=== PATIENT | female | born 1970 | race Caucasian/White ===

== ENCOUNTER 2016-06-05 15:36 | Emergency (ER) | payer MEDICAID ==
[~2016-06-05] VITALS: Ht 160 cm; Wt 93.0 kg
[~2016-06-05 15:36] MED LIST: MOTRIN600 MG PO; PRENATAL VITAMI1 T10 PO; PRENATALS; ROBITUSSIN20 MG/1 ML PO
--- NOTE | 2016-06-05 16:00 | NUR ---
PT TAKEN TO BED 5
--- NOTE | 2016-06-05 16:02 | NUR ---
45 F BIB FAMILY C/O HIGH BP, DIZZY & NAUSEA X TODAY. PATIENT DENIES V/D; SKIN IS PINK/WARM/DRY; AAOX4 WITH EVEN AND STEADY GAIT; LUNGS CLEAR BL; HR EVEN AND REGULAR; PT DENIES ANY FEVER, CP, SOB, OR COUGH AT THIS TIME; PATIENT STATES PAIN OF 0/10 AT THIS TIME; PATIENT POSITIONED FOR COMFORT; HOB ELEVATED; BEDRAILS UP X2; BED DOWN. ER MD MADE AWARE OF PT STATUS.
--- NOTE | 2016-06-05 16:02 | NUR ---
Note undone in EDM - 06/05/16 at 1618 by [email or web address] 45 F BIB FAMILY C/O HIGH BP, DIZZY & NAUSEA X TODAY. PATIENT DENIES V/D; SKIN IS PINK/WARM/DRY; AAOX4 WITH EVEN AND STEADY GAIT; LUNGS CLEAR BL; HR EVEN AND REGULAR; PT DENIES ANY FEVER, CP, SOB, OR COUGH AT THIS TIME; PATIENT STATES PAIN OF 0/10 AT THIS TIME; VSS; PATIENT POSITIONED FOR COMFORT; HOB ELEVATED; BEDRAILS UP X2; BED DOWN. ER MD MADE AWARE OF PT STATUS.
[2016-06-05 16:10] VITALS: BP 225/128
[2016-06-05] MEDS ORDERED: ZESTRIL20 MG PO (16:17)
[2016-06-05] MEDS ORDERED: ORETIC25 MG PO (16:17)
--- NOTE | 2016-06-05 16:25 | NUR ---
WARM BLANKET PROVIDED TO PT FOR COMFORT.
--- NOTE | 2016-06-05 17:15 | NUR ---
DR CHRISTIANSON EVALUATING PT AT BEDSIDE.
--- NOTE | 2016-06-05 17:28 | NUR ---
Patient appears to be resting comfortably in bed. Respirations even and unlabored.WILL CONTINUE TO MONITOR
--- NOTE | 2016-06-05 17:58 | NUR ---
Note jose albertoone in [facility] - 06/05/16 at 1801 by HENRY LIAN ZHOUTING PT AT BEDSIDE. Addendum: 06/05/16 at 1758 by HENRY [place] in [facility] - 06/05/16 at 1759 by HENRY PT RETURNED FROM ICU.
--- NOTE | 2016-06-05 17:58 | NUR ---
ER MD DR. CHRISTIANSON RETURNED FROM ICU, EVALUATING PT AT BEDSIDE.
[2016-06-05] MEDS ORDERED: MECLIZINE 25 MG TAB PO ONE (18:05)
[2016-06-05] MEDS ORDERED: ONDANSETRON 4 MG ODT PO ONE (18:05)
--- NOTE | 2016-06-05 19:29 | NUR ---
Pt report given to MAXIMINO HATCH. Transfer of care at this time.
[2016-06-05 19:54] VITALS: BP 138/80
--- NOTE | 2016-06-05 19:55 | NUR ---
Patient discharged with v/s stable. Written and verbal after care instructions given and explained. Patient alert, oriented and verbalized understanding of instructions. Ambulatory with steady gait. All questions addressed prior to discharge. ID band removed. Patient advised to follow up with PMD. Rx of ZOFRAN 8MG PO, MECLIZINE HYDROCHLORIDE 25MG PO given. Patient educated on indication of medication including possible reaction and side effects. Opportunity to ask questions provided and answered.
== END 2016-06-05 19:55 | disposition home or self-care (01) ==
LOC: MED 15:36
DX: R42 Dizziness and giddiness (principal); I10 Essential (primary) hypertension; R11.0 Nausea; F17.200 Nicotine dependence, unspecified, uncomplicated
CPT/HCPCS: 81002; 81025; 99283; J8597; S0119

== ENCOUNTER 2017-12-20 12:52 | Emergency (ER) | payer MEDICAID ==
[~2017-12-20] VITALS: Ht 160 cm; Wt 89.4 kg
[~2017-12-20 12:52] MED LIST changes: +LISI-420 PO; -MOTRIN600 MG PO; +ORE25 PO; -PRENATAL VITAMI1 T10 PO; -PRENATALS; -ROBITUSSIN20 MG/1 ML PO
[2017-12-20 13:15] VITALS: BP 198/107
--- NOTE | 2017-12-20 13:15 | NUR ---
PATIENT AMB. TO BED #5
--- NOTE | 2017-12-20 13:20 | NUR ---
PATIENT PRESENTS TO ED WITH DIZZINESS x1 WEEK . PT STATES SHE HAD TO STOP TAKING HER BP MEDICATIONS DUE TO ISSUES WITH HER INSURANCE; STATES SHE HAS PERIODS OF BLURRY VISION WELL. DENIES N/V/D; SKIN IS PINK/WARM/DRY; AAOX4 WITH EVEN AND STEADY GAIT; LUNGS CLEAR BL; HR EVEN AND REGULAR; PT DENIES ANY FEVER, CP, SOB, OR COUGH AT THIS TIME; PATIENT STATES PAIN OF 0/10 AT THIS TIME; VSS; PATIENT POSITIONED FOR COMFORT; HOB ELEVATED; BEDRAILS UP X2; BED DOWN. ER MD MADE AWARE OF PT STATUS.
--- NOTE | 2017-12-20 13:22 | NUR ---
PATIENT HAS EQUAL [employer] BILATERALLY. EYES PERRLA. NO COMPLAINT OF HEADACHE. STEADY GAIT AND CLEAR. WILL CONTINUE TO MONITOR
[2017-12-20] MEDS ORDERED: MECLIZINE 25 MG TAB PO ONE (13:30)
--- NOTE | 2017-12-20 13:30 | NUR ---
DR CHRISTIANSON MADE AWARE OF PATIENTS BP AT THIS TIME. NO SIGNS OF STROKE AT THIS TIME. PT A&Ox4. WILL FOLLOW UP WITH MD ORDERS.
[2017-12-20] MEDS ORDERED: ENALAPRIL 10 MG TAB PO ONE (13:40)
[2017-12-20] MEDS ORDERED: KETOROLAC 60 MG/2 ML VIAL IM ONE (14:00)
--- NOTE | 2017-12-20 14:27 | NUR ---
PATIENTS BP IMPROVING 181/97. DOCTOR INFORMED.
--- NOTE | 2017-12-20 15:06 | NUR ---
PT STATES SHE IS FEELING BETTER. BP 184/79. WILL CONTINUE TO MONITOR
[2017-12-20 15:29] VITALS: BP 184/79
--- NOTE | 2017-12-20 15:30 | NUR ---
Patient discharged with v/s stable. BP STILL ELEVATED BUT PATIENT DENIES DIZZINESS AT THIS TIME. Written and verbal after care instructions given and explained. Patient alert, oriented and verbalized understanding of instructions. Ambulatory with steady gait. All questions addressed prior to discharge. ID band removed. Patient advised to follow up with PMD. Rx of MOTRIN, MECLIZINE HYDROCHORIDE, ZOFRAN given. Patient educated on indication of medication including possible reaction and side effects. Opportunity to ask questions provided and answered.
== END 2017-12-20 15:30 | disposition home or self-care (01) ==
LOC: MED 12:52
DX: H81.10 Benign paroxysmal vertigo, unspecified ear (principal); I10 Essential (primary) hypertension; Z79.899 Other long term (current) drug therapy
CPT/HCPCS: 81002; 81025; 82948; 99283; J8597; J1885